=== PATIENT | female | born 1960 | race Caucasian/White ===

== ENCOUNTER 2017-07-15 10:55 | Day surgery (SDC) | payer BC ==
[2017-07-13 12:07] VITALS: BMI 22.9
[~2017-07-15 10:55] MED LIST: LACTATED RINGERS 1,000 ML IV SCH
[2017-07-15 12:05] VITALS: RESP 16
[2017-07-15 12:07] VITALS: TEMP 98
[2017-07-15] MEDS ORDERED: LIDOCAINE 1% 20 ML VIAL (10MG/ML) FOR IV START INTRADERMA ONE (12:20)
[2017-07-15 12:24] LABS: Glucose,Whole Blood 82 mg/dL (75-99)
[2017-07-15] MEDS ORDERED: PROPOFOL 10 MG/ML 20 ML VIAL IV ONE (12:28)
--- NOTE | 2017-07-15 12:44 | P.PCN ---
Date of Procedure: 07/15/17 Procedure(s) Performed: BRIEF HISTORY: Patient is a 56-year-old pleasant white female, scheduled for an elective colonoscopy as a part of screening for colorectal neoplasia. PROCEDURE PERFORMED: Colonoscopy with biopsy PREOPERATIVE DIAGNOSIS: Screening for colon cancer. IV sedation per Anesthesia. PROCEDURE: After informed consent was obtained, the patient, was brought into the endoscopy unit. IV sedation was administered by Anesthesia under continuous monitoring. Digital rectal examination was normal. Initially the Olympus CF- 160 flexible video colonoscope was then inserted in the rectum, gradually advanced into the cecum without any difficulty. Careful examination was performed as the scope was gradually being withdrawn. Ileocecal valve and the appendiceal orifice were visualized and appeared normal. Prep was excellent. In the cecum there was a 5 mm polyp removed by biopsy. In the proximal transverse colon there was a 2-3 mm polyp removed by biopsy. The rest of the mucosa of the cecum, ascending colon, transverse colon, descending colon, sigmoid colon, and rectum appeared normal. Retroflexion was performed in the rectum and no lesions were seen. In the rectum there were 2 small polyps measuring 2-3 mm in size removed by biopsy. The patient tolerated the procedure well. IMPRESSION: 5 mm cecal polyp status post removal by biopsy 2-3 mm transverse colon polyp status post biopsy 2- 3 mm 2 rectal polyps status post biopsy RECOMMENDATIONS: Findings of this examination were discussed with the patient as well as her family.. She was advised to follow with the biopsy results. If the biopsy shows a tubular adenoma she can have a repeat colonoscopy in 5 years
[2017-07-15 13:01] VITALS: BP 138/81; PULSE 51
== END 2017-07-15 13:44 | disposition home or self-care (01) ==
LOC: ORWHC2ENDO 10:55
PROVIDERS: ATTEND Internal Medicine Gastroenterology
DX: Z12.11 Encounter for screening for malignant neoplasm of colon (principal); D12.0 Benign neoplasm of cecum; D12.3 Benign neoplasm of transverse colon; D12.8 Benign neoplasm of rectum; Z88.0 Allergy status to penicillin
CPT/HCPCS: 45380; 81025; 88305; J2704

== ENCOUNTER 2022-09-11 14:03 | Emergency (ER) | payer BC ==
--- NOTE | 2022-09-11 17:01 | ED ---
ENT HPI - General Chief complaint: ENT Stated complaint: nose bleed Time Seen by Provider: 09/11/22 15:30 Source: patient, EMS Mode of arrival: EMS Limitations: no limitations - History of Present Illness Initial comments: 62-year-old female with past medical history of superficial thrombophlebitis on aspirin who presents to the emergency department reporting a bloody nose. Patient was seen at [facility] on Thursday after she was having some nasal congestion and cough. They did a Covid swab which was negative. The patient had some epistaxis associated with the draw she states it was quite dramatic. She has had intermittent episodes of bleeding. This morning the bleeding began at 8 AM and would not stop. She went into [facility]. They did place a rapid Rhino in the right nare. The patient was concerned that she was still having bleeding and demanded to see an director search. There are not available at [facility], therefore the patient was transferred to our facility. The patient arrives with relatively good control of the bleeding. She denies any nausea or vomiting. No fevers. Last dose of aspirin was on Thursday. No history of any clotting disorders. No alleviating, precipitating or modifying factors - Related Data Previous Rx's Medication Instructions Recorded Cephalexin [Keflex] 500 mg PO Q6HR #20 cap 09/11/22 HYDROcodone/APAP 5-325MG [[place] 1 tab PO Q6HR PRN 3 Days #12 tab 09/11/22 5-325] Allergies Allergy/AdvReac Type Severity Reaction Status Date / Time Penicillins Allergy Rash/Hives/ Verified 09/12/22 03:38 swelling Review of Systems ROS Statement: Those systems with pertinent positive or pertinent negative responses have been documented in the HPI. ROS Other: All systems not noted in ROS Statement are negative. Past Medical History Past Medical History: Deep Vein Thrombosis (DVT) Additional Past Medical History / Comment(s): change in bowel habits, blood in stool, hx varicose veins, states hx of DVT with , hx low blood sugar History of Any Multi-Drug Resistant Organisms: None Reported Past Surgical History: Appendectomy, Breast Surgery Additional Past Surgical History / Comment(s): benign lump breast Past Anesthesia/Blood Transfusion Reactions: No Reported Reaction Past Psychological History: No Psychological Hx Reported Smoking Status: Never smoker Past Alcohol Use History: Occasional Past Drug Use History: None Reported General Exam Limitations: no limitations General appearance: alert, in no apparent distress Head exam: Present: atraumatic, normocephalic, normal inspection Eye exam: Present: normal appearance, PERRL, EOMI. Absent: scleral icterus, conjunctival injection, periorbital swelling ENT exam: Present: mucous membranes moist, other (clotted blood in posterior pharynx. Rapid rhino in right nare. mind pink tinged drainage without active bleeding. ) Neck exam: Present: normal inspection. Absent: tenderness, meningismus, lymphad enopathy Respiratory exam: Present: normal lung sounds bilaterally. Absent: respiratory distress, wheezes, rales, rhonchi, stridor Cardiovascular Exam: Present: regular rate, normal rhythm, normal heart sounds. Absent: systolic murmur, diastolic murmur, rubs, gallop, clicks GI/Abdominal exam: Present: soft, normal bowel sounds. Absent: distended, tenderness, guarding, rebound, rigid Extremities exam: Present: normal inspection, full ROM, normal capillary refill. Absent: tenderness, pedal edema, joint swelling, calf tenderness Back exam: Present: normal inspection Neurological exam: Present: alert, oriented X3, CN II-XII intact Psychiatric exam: Present: normal affect, normal mood Skin exam: Present: warm, dry, intact, normal color. Absent: rash Course Vital Signs 09/11/22 09/11/22 14:08 18:45 Temperature 98.1 F 98.9 F Pulse Rate 109 H 96 Respiratory 20 18 Rate Blood Pressure 117/76 127/76 O2 Sat by Pulse 95 98 Oximetry Medical Decision Making - Medical Decision Making Was pt. sent in by a medical professional or institution? [facility] Did you speak to anyone other than the patient for history? Did you review nursing and triage notes? yes and I agree Were old charts reviewed? I read the transfer report from [facility] where the patient was transferred from Differential Diagnosis? anterior epistaxsis, posterior epistaxsis, nasal trauma, septal hematoma, nasal mass. This list is not all inclusive. EKG interpreted by me (3pts min.)? no X-rays interpreted by me (1pt min.)? no CT interpreted by me (1pt min.)? no U/S interpreted by me (1pt. min.)? no What testing was considered but not performed? (CT, X-rays, U/S, labs)? Why? none What meds were considered but not given? Why? none Did you discuss the management of the patient with other professionals? The ENT immigration investigator Did you reconcile home meds? no Was smoking cessation discussed for >3mins.? no Was critical care preformed (if so, how long)? no Were there social determinants of health that impacted care today? How? (Homelessness, low income, unemployed, alcoholism, drug addiction, transportation, low edu. Level, literacy, decrease access to med. care, half-way, rehab)? none Was there de-escalation of care discussed even if they declined? (Discuss DNR or withdrawal of care, Hospice)? no What co-morbidities impacted this encounter? (DM, HTN, Smoking, COPD, CAD, Cancer, CVA, Hep., AIDS, mental health diagnosis, sleep apnea, morbid obesity)? none Was patient admitted / discharged? @Upon arrival patient was placed into room 30. Thorough history and physical exam was performed. IV had been established by outside facility. She was given a 1 L bolus of normal saline. Evaluation demonstrates a the patient does have tamponade of what appears to be a posterior epistaxis. Outside facility reports that they placed an anterior pack as the patient was not tolerating a posterior pack. I did discuss removing the anterior pack to replace it with a posterior packing however patient refused knowing the risks that she could rebleed. I did call and speak with Dr. Fox. States that if the patient has controlled bleeding she can call and follow up with the office on Thursday for packing removal. If bleeding is persistent she may require embolization. The patient is watched for several hours in the emergency department without any acute bleeding. Patient is agreeable to going home. Will return for any active bleeding. Otherwise will call the office in the morning and make an appointment with the ENT to have packing removed on Thursday. She will be placed on antibiotics and pain medications. He was discharged home in stable condition Undiagnosed new problem with uncertain prognosis? yes Drug Therapy requiring intensive monitoring for toxicity (Heparin, Nitro, Insulin, Cardizem)? none Were any procedures done? none Diagnosis/symptom? acute posterior epistaxsis Acute, or Chronic, or Acute on Chronic? acute Uncomplicated (without systemic symptoms) or Complicated (systemic symptoms)? uncomplicated Side effects of treatment? none Exacerbation, Progression, or Severe Exacerbation] no Poses a threat to life or bodily function? yes Disposition Clinical Impression: Posterior epistaxis Disposition: HOME SELF-CARE Condition: Stable Instructions (If sedation given, give patient instructions): Nosebleed (ED) Additional Instructions: Please leave the packing in place. It will be removed on Thursday by the ENT. If you have any active bleeding, you need to return to the ED for evaluation. Call in the morning to make an appointment with the ENT for Thursday. Let them know that you need packing removal. Take the antibiotics and pain medications as needed and return for any new or worsening symptoms Prescriptions: Cephalexin [Keflex] 500 mg PO Q6HR #20 cap HYDROcodone/APAP 5-325MG [[place] 5-325] 1 tab PO Q6HR PRN 3 Days #12 tab PRN Reason: Pain Is patient prescribed a controlled substance at d/c from ED?: Yes When asked, does pt state using other controlled substances?: No If prescribed controlled substance>3 days was MAPS reviewed?: Prescribed <3 Days Referrals: Ankit Almanza MD [Primary Care Provider] - 1-2 days Ruben Cruz MD [STAFF PHYSICIAN] - 1-2 days Time of Disposition: 17:00
[2022-09-11] MEDS ORDERED: SODIUM CHLORIDE 0.9% 1,000 ML IV ONE (17:28)
[2022-09-11 18:47] VITALS: BP 127/76; PULSE 96; RESP 18; TEMP 98.9
== END 2022-09-11 18:45 | disposition home or self-care (01) ==
LOC: EC 14:03
DX: R04.0 Epistaxis (principal); Z88.0 Allergy status to penicillin
CPT/HCPCS: 96360; 99284

== ENCOUNTER 2022-09-12 03:33 | Emergency (ER) | payer BC ==
[2022-09-12 03:40] VITALS: RESP 15; TEMP 97.5
[2022-09-12 05:13] VITALS: BP 126/82; PULSE 79
--- NOTE | 2022-09-12 05:30 | ED ---
General Adult HPI - General Chief complaint: ENT Stated complaint: Nose Bleed Time Seen by Provider: 09/12/22 04:35 Source: patient, family Mode of arrival: ambulatory Limitations: no limitations - History of Present Illness Initial comments: This is a 62-year-old female who presents emergency department for concerns of nosebleed. The patient stated that she was recently seen at [facility] 2 days ago and had a COVID-19 test performed which initiated a nosebleed. The patient then stated that the nosebleed continued and nasal packing was placed. She was discharged home to follow-up with ENT as there is no ENT at this facility to be transferred to. The patient stated that the bleeding had stopped with nasal packing in the right naris however did note that around 2:30 this morning she did have increased bleeding from the right naris around the packing. The patient was following directions according to her and came to the emergency department to be evaluated. On evaluation, the patient did have any active bleeding noted and did have a Rhino Rocket in place in the right naris. The patient denied any other acute pain or complaints at this time. - Related Data Previous Rx's Medication Instructions Recorded Cephalexin [Keflex] 500 mg PO Q6HR #20 cap 09/11/22 HYDROcodone/APAP 5-325MG [[place] 1 tab PO Q6HR PRN 3 Days #12 tab 09/11/22 5-325] Allergies Allergy/AdvReac Type Severity Reaction Status Date / Time Penicillins Allergy Rash/Hives/ Verified 09/12/22 03:38 swelling Review of Systems ROS Statement: Those systems with pertinent positive or pertinent negative responses have been documented in the HPI. ROS Other: All systems not noted in ROS Statement are negative. Past Medical History Past Medical History: Deep Vein Thrombosis (DVT) Additional Past Medical History / Comment(s): change in bowel habits, blood in stool, hx varicose veins, states hx of DVT with , hx low blood sugar History of Any Multi-Drug Resistant Organisms: None Reported Past Surgical History: Appendectomy, Breast Surgery Additional Past Surgical History / Comment(s): benign lump breast Past Anesthesia/Blood Transfusion Reactions: No Reported Reaction Past Psychological History: No Psychological Hx Reported Smoking Status: Never smoker Past Alcohol Use History: Occasional Past Drug Use History: None Reported General Exam Limitations: no limitations General appearance: alert, in no apparent distress Head exam: Present: atraumatic, normocephalic, normal inspection Eye exam: Present: normal appearance, PERRL Pupils: Present: normal accommodation ENT exam: Present: normal exam, normal oropharynx, mucous membranes moist, other (Rhino Rocket in place in the right naris with dried blood around the opening) Neck exam: Present: normal inspection, full ROM Respiratory exam: Present: normal lung sounds bilaterally Cardiovascular Exam: Present: regular rate, normal rhythm, normal heart sounds GI/Abdominal exam: Present: soft, normal bowel sounds Extremities exam: Present: normal inspection, full ROM, normal capillary refill Back exam: Present: normal inspection, full ROM Neurological exam: Present: alert, oriented X3, CN II-XII intact Psychiatric exam: Present: normal affect, normal mood Skin exam: Present: warm, dry Course Vital Signs 09/12/22 09/12/22 03:38 05:05 Temperature 97.5 F L Pulse Rate 81 79 Respiratory 15 Rate Blood Pressure 115/79 126/82 O2 Sat by Pulse 100 94 L Oximetry Medical Decision Making - Medical Decision Making Was pt. sent in by a medical professional or institution (, PA, CODE ENFORCEMENT INSPECTOR, urgent care, hospital, or [facility]...) When possible be specific @ -No Did you speak to anyone other than the patient for history (EMS, parent, family, police, friend...)? What history was obtained from this source @ -No Did you review nursing and triage notes (agree or disagree)? Why? @ -I reviewed and agree with nursing and triage notes Were old charts reviewed (outside hosp., previous admission, EMS record, old EKG, old radiological studies, urgent care reports/EKG's, [facility] records)? Report findings @ -No old charts were reviewed Differential Diagnosis (chest pain, altered mental status, abdominal pain women, abdominal pain men, vaginal bleeding, weakness, fever, dyspnea, syncope, hea dache, dizziness, GI bleed, back pain, seizure, CVA, palpatations, mental health)? @ -Nosebleed, nasal polyp EKG interpreted by me (3pts min.). @ -None X-rays interpreted by me (1pt min.). @ -None done CT interpreted by me (1pt min.). @ -None done U/S interpreted by me (1pt. min.). @ -None done What testing was considered but not performed or refused? (CT, X-rays, U/S, labs)? Why? @ -None What meds were considered but not given or refused? Why? @ -None Did you discuss the management of the patient with other professionals (prof molina i.e. , PA, CODE ENFORCEMENT INSPECTOR, lab, RT, psych nurse, clinical social worker, irrigation supervisor, teacher, juvenile officer, rn case management)? Give summary @ -No Was smoking cessation discussed for >3mins.? @ -No Was critical care preformed (if so, how long)? @ -No Were there social determinants of health that impacted care today? How? (Homelessness, low income, unemployed, alcoholism, drug addiction, transportation, low edu. Level, literacy, decrease access to med. care, custodial, rehab)? @ -No Was there de-escalation of care discussed even if they declined (Discuss DNR or withdrawal of care, Hospice)? DNR status @ -No What co-morbidities impacted this encounter? (DM, HTN, Smoking, COPD, CAD, Cancer, CVA, ARF, Chemo, Hep., AIDS, mental health diagnosis, sleep apnea, morbid obesity)? @ -None Was patient admitted / discharged? Hospital course, mention meds given and route, prescriptions, significant lab abnormalities, going to OR and other pertinent info. @ -The patient was seen and evaluated in the emergency department. Physical exam, the patient was resting in bed. On physical exam there was noted to be a Rhino Rocket in the right nares without any active bleeding noted. The patient was advised that no further intervention would be required at this time and they were advised that they could inflate the balloon slightly if there was increased bleeding. The patient was advised to follow-up with ENT in the morning for further workup and evaluation the office. Both the patient and her were agreeable to this and an extensive conversation was had with the patient. They both agreed with this and the patient was discharged home in stable condition. Undiagnosed new problem with uncertain prognosis? @ -No Drug Therapy requiring intensive monitoring for toxicity (Heparin, Nitro, Insulin, Cardizem)? @ -No Were any procedures done? @ -No Diagnosis/symptom? @ -Nosebleed Acute, or Chronic, or Acute on Chronic? @ -Acute on chronic Uncomplicated (without systemic symptoms) or Complicated (systemic symptoms)? @ -Uncomplicated Side effects of treatment? @ -No Exacerbation, Progression, or Severe Exacerbation? @ -No Poses a threat to life or bodily function? How? (Chest pain, [place], [place], pneumonia, PE, COPD, DKA, ARF, appy, cholecystitis, CVA, Diverticulitis, Homicidal, Suicidal, threat to staff... and all critical care pts) @ -No Disposition Clinical Impression: Nosebleed Disposition: HOME SELF-CARE Condition: Stable Instructions (If sedation given, give patient instructions): Nosebleed (ED) Is patient prescribed a controlled substance at d/c from ED?: No Referrals: Hong Almanza MD [Primary Care Provider] - 1-2 days Ruben Cruz MD [STAFF PHYSICIAN] - 1-2 days Time of Disposition: 05:25
== END 2022-09-12 05:44 | disposition home or self-care (01) ==
LOC: EC 03:33
DX: R04.0 Epistaxis (principal); Z86.718 Personal history of other venous thrombosis and embolism; Z88.0 Allergy status to penicillin
CPT/HCPCS: 99283

== ENCOUNTER 2022-09-12 16:31 | Emergency (ER) | payer BC ==
[2022-09-12 16:49] VITALS: BP 131/85; PULSE 84; RESP 18; TEMP 97.5
--- NOTE | 2022-09-12 17:50 | US ---
EXAMINATION TYPE: US venous doppler duplex LE LT DATE OF EXAM: 09/12/2022 5:40 PM COMPARISON: NONE CLINICAL HISTORY: leg pain. Pt states pain left leg and medial left calf SIDE PERFORMED: Left TECHNIQUE: The lower extremity deep venous system is examined utilizing real time linear array sonog lillian with graded compression, doppler sonography and color-flow sonography. VESSELS IMAGED: Common Femoral Vein Deep Femoral Vein Greater Saphenous Vein * Femoral Vein Popliteal Vein Small Saphenous Vein * Proximal Calf Veins (* superficial vessels) Left Leg: Negative for DVT, left medial calf in area of pain and palpable there is +superficial thro mbophlebitis IMPRESSION: No evidence of deep vein thrombosis in the left leg. There is some superficial vein throm bosis.
--- NOTE | 2022-09-12 18:52 | ED ---
Extremity Problem HPI - General Chief complaint: Extremity Problem,Nontraumatic Stated complaint: DVT Source: patient Mode of arrival: ambulatory Limitations: no limitations - History of Present Illness Initial comments: Patient is a 62 year old female who presents to the emergency department with chief complaint of left lower extremity pain. Patient sent in by her PCP for rule out DVT. Patient reports pain in her left calf where she was diagnosed with superficial thrombophebitis. She felt some pain in her upper left thigh today and after having covid this week therefore not being active, she became concerned it was a DVT. Denies injury. She has history of DVT and recurrent superficial thrombophelbitis which she follows with a cardiothoracic surgeon in [facility]. Takes a baby aspirin otherwise she is not on blood thinners. Denies chest pain and SOB - Related Data Previous Rx's Medication Instructions Recorded Cephalexin [Keflex] 500 mg PO Q6HR #20 cap 09/11/22 HYDROcodone/APAP 5-325MG [[place] 1 tab PO Q6HR PRN 3 Days #12 tab 09/11/22 5-325] Allergies Allergy/AdvReac Type Severity Reaction Status Date / Time Penicillins Allergy Rash/Hives/ Verified 09/12/22 03:38 swelling Review of Systems ROS Statement: Those systems with pertinent positive or pertinent negative responses have been documented in the HPI. ROS Other: All systems not noted in ROS Statement are negative. Past Medical History Past Medical History: Deep Vein Thrombosis (DVT) Additional Past Medical History / Comment(s): change in bowel habits, blood in stool, hx varicose veins, states hx of DVT with , hx low blood sugar History of Any Multi-Drug Resistant Organisms: None Reported Past Surgical History: Appendectomy, Breast Surgery Additional Past Surgical History / Comment(s): benign lump breast Past Anesthesia/Blood Transfusion Reactions: No Reported Reaction Past Psychological History: No Psychological Hx Reported Smoking Status: Never smoker Past Alcohol Use History: Occasional Past Drug Use History: None Reported General Exam Limitations: no limitations General appearance: alert, in no apparent distress Head exam: Present: atraumatic, normocephalic, normal inspection Respiratory exam: Present: normal lung sounds bilaterally. Absent: respiratory distress, wheezes, rales, rhonchi, stridor Cardiovascular Exam: Present: regular rate, normal rhythm, normal heart sounds. Absent: systolic murmur, diastolic murmur, rubs, gallop, clicks GI/Abdominal exam: Present: soft, normal bowel sounds. Absent: distended, tenderness, guarding, rebound, rigid Extremities exam: Present: other (paplable cord in left calve. small nodule palpated in upper left thigh, tender to paplation. No overlying skin abnormalities. LLE neurovascularly intact. Full ROM) Neurological exam: Present: alert, oriented X3, CN II-XII intact Psychiatric exam: Present: normal affect, normal mood Skin exam: Present: warm, dry, intact, normal color. Absent: rash Course Vital Signs 09/12/22 16:47 Temperature 97.5 F L Pulse Rate 84 Respiratory 18 Rate Blood Pressure 131/85 O2 Sat by Pulse 100 Oximetry Medical Decision Making - Medical Decision Making Was pt. sent in by a medical professional or institution ([facility], STAFFING MANAGER, urgent care, hospital, or residential...) When possible be specific @ -[No] Did you speak to anyone other than the patient for history (EMS, parent, family, police, friend...)? What history was obtained from this source @ -[No] Did you review nursing and triage notes (agree or disagree)? Why? @ -[I reviewed and agree with nursing and triage notes] Were old charts reviewed (outside hosp., previous admission, EMS record, old EKG, old radiological studies, urgent care reports/EKG's, residential records)? Report findings @ -[No old charts were reviewed] Differential Diagnosis (chest pain, altered mental status, abdominal pain women, abdominal pain men, vaginal bleeding, weakness, fever, dyspnea, syncope, headache, dizziness, GI bleed, back pain, seizure, CVA, palpatations, mental health)? @ -DVT, superficial thrombophlebitis, muscle strain EKG interpreted by me (3pts min.). @ -[As above] X-rays interpreted by me (1pt min.). @ -[None done] CT interpreted by me (1pt min.). @ -[None done] U/S interpreted by me (1pt. min.). @ -Radiology report of LLE ultrasound with doppler negative for acute DVT. There is evidence of superficial thrombophlebitis of the left medial calf. What testing was considered but not performed or refused? (CT, X-rays, U/S, labs)? Why? @ -[None] What meds were considered but not given or refused? Why? @ -[None] Did you discuss the management of the patient with other professionals (professionals i.e. , PA, STAFFING MANAGER, lab, RT, psych nurse, social media intern, market research assistant, teacher, pharmaceutical officer, case aide)? Give summary @ -[No] Was smoking cessation discussed for >3mins.? @ -[No] Was critical care preformed (if so, how long)? @ -[No] Were there social determinants of health that impacted care today? How? (Homelessness, low income, unemployed, alcoholism, drug addiction, transportation, low edu. Level, literacy, decrease access to med. care, half-way, rehab)? @ -[No] Was there de-escalation of care discussed even if they declined (Discuss DNR or withdrawal of care, Hospice)? DNR status @ -[No] What co-morbidities impacted this encounter? (DM, HTN, Smoking, COPD, CAD, Cancer, CVA, ARF, Chemo, Hep., AIDS, mental health diagnosis, sleep apnea, morbid obesity)? @ -[None] Was patient admitted / discharged? Hospital course, mention meds given and route, prescriptions, significant lab abnormalities, going to OR and other pertinent info. @ -This is a 62 year old female presenting for rule out DVT. US with doppler LLE negative for acute DVT. There is superficial thrombophlebitis of the left medial calf. I did speak with US personally over the phone. Clot is small, far from the deep venous system-anticoagulation is not warranted.Patient to follow up with her cardiothoracic surgeon. Undiagnosed new problem with uncertain prognosis? @ -[No] Drug Therapy requiring intensive monitoring for toxicity (Heparin, Nitro, Insulin, Cardizem)? @ -[No] Were any procedures done? @ -[No] Diagnosis/symptom? @ -superficial thrombophlebitis Acute, or Chronic, or Acute on Chronic? @ -acute Uncomplicated (without systemic symptoms) or Complicated (systemic symptoms)? @ -uncomplicated Side effects of treatment? @ -[No] Exacerbation, Progression, or Severe Exacerbation? @ -[No] Poses a threat to life or bodily function? How? (Chest pain, USA, CT, pneumonia, PE, COPD, DKA, ARF, appy, cholecystitis, CVA, Diverticulitis, Homicidal, Suicidal, threat to staff... and all critical care pts) @ -[No] Dr. Harris is my attending. Disposition Clinical Impression: Superficial thrombophlebitis Disposition: HOME SELF-CARE Condition: Good Instructions (If sedation given, give patient instructions): Superficial Thrombophlebitis (ED) Additional Instructions: Please follow up with your cardiothoracic surgeon. Return to the emergency department if you experience new, concerning, or worsening symptoms. Is patient prescribed a controlled substance at d/c from ED?: No Referrals: Ankit Al MD [Primary Care Provider] - 1-2 days
== END 2022-09-12 19:07 | disposition home or self-care (01) ==
LOC: EC 16:31
DX: I80.01 Phlebitis and thrombophlebitis of superficial vessels of right lower extremity (principal); Z88.0 Allergy status to penicillin
CPT/HCPCS: 99283

== ENCOUNTER → 2024-08-10 | Outpatient (CLI) | payer MEDICARE ==
--- NOTE | 2024-08-10 13:29 | US ---
EXAMINATION TYPE: US pelvis complete transvag DATE OF EXAM: 08/10/2024 COMPARISON: NONE CLINICAL INDICATION: Female, 64 years old with history of N84.1 CERVICAL POLYP; Pt states spotting ev eryday x few months, uterine prolapse TECHNIQUE: Transvaginal (TV) and Transabdominal (TA) . Transabdominal grayscale sonographic images of the pelvis were acquired. Transvaginal sonographic im ages were medically necessary to better assess the following anatomy: TV ordered per physician Doppler imaging: Not performed. FINDINGS: Date of LMP: 10+ years ago EXAM MEASUREMENTS: Uterus: 9.3 x 2.5 x 4.8 cm Endometrial Stripe: 0.3 cm Right Ovary: 2.1 x 1.7 x 1.9 cm Left Ovary: 1.8 x 0.9 x 1.1 cm 1. Uterus: Anteverted wnl 2. Endometrium: wnl 3. Right Ovary: wnl 4. Left Ovary: wnl 5. Bilateral Adnexa: wnl 6. Posterior cul-de-sac: wnl IMPRESSION: 1. No evidence for acute process. 2. Endometrium within normal limits for thickness. [facility], , 08/10/2024 1:27 PM
== END | disposition home or self-care (01) ==
LOC: RADUSWWP 12:01
PROVIDERS: ATTEND Student in an Organized Health Care Education/Training Program
DX: N84.1 Polyp of cervix uteri (principal); N81.4 Uterovaginal prolapse, unspecified
CPT/HCPCS: 76830; 76856